=== PATIENT | male | born 2000 | race Hispanic/Latino ===

== ENCOUNTER 2019-05-29 20:11 | Emergency (ER) | payer OTHER ==
[~2019-05-29] VITALS: Ht 180.3 cm; Wt 71.8 kg
[2019-05-29 20:11] VITALS: BP 114/74
== END 2019-05-29 21:05 | disposition home or self-care (01) ==
LOC: M ED 20:11
DX: Z04.89 Encounter for examination and observation for other specified reasons (principal)

== ENCOUNTER 2019-09-11 11:40 | Emergency (ER) | payer OTHER ==
[~2019-09-11] VITALS: Ht 180.3 cm; Wt 70.1 kg
[2019-09-11 11:40] VITALS: BP 125/72
== END 2019-09-11 13:12 | disposition home or self-care (01) ==
LOC: M ED 11:40
DX: B34.9 Viral infection, unspecified (principal)

== ENCOUNTER 2019-11-18 05:04 | Emergency (ER) | payer OTHER ==
[~2019-11-18] VITALS: Ht 180.3 cm; Wt 67.9 kg
[2019-11-18 06:00] VITALS: BP 108/53
[2019-11-18] MEDS ORDERED: NITROFURANTOIN (MACROBID) 100 MG CAP PO ONE (06:15)
[2019-11-18] MEDS ORDERED: PYRI1TAB5 PO (06:15)
[2019-11-18] MEDS ORDERED: MACR100C43 PO (06:15)
[2019-11-20] MEDS ORDERED: BACT800T5 PO (12:04)
== END 2019-11-18 06:31 | disposition home or self-care (01) ==
LOC: M ED 05:04
DX: N30.91 Cystitis, unspecified with hematuria (principal)